=== PATIENT | male | born 1960 | race Caucasian/White ===

== ENCOUNTER 2016-10-19 07:06 | Emergency (ER) | payer BC ==
[~2016-10-19] VITALS: Ht 190.5 cm; Wt 149.1 kg
[~2016-10-19 07:06] MED LIST: ADVIL200 M3 PO; ALKA-SELTZER H1 EACH PO; AMLODIPINE BESY10 MG PO; ASPIR 8181 M1 PO; ASPIRIN325 MG PO; ATORVASTATIN CA80 MG PO; BYSTOLIC10 MG PO; CEFDINIR300 MG PO; DIOVAN HCT 31 TABLE1 PO; DIOVAN320 MG PO; ECOTRIN325 MG PO; EFFIENT10 MG PO; ENDOCET 5-3251 EACH PO; EPIPEN ADU0.3 MG/0.3 IM; GLUCOPHAGE500 MG PO; HYZAAR 100-21 TABLET PO; INDOCIN25 MG PO; LABETALOL HCL200 MG PO; LIPITOR80 MG PO; MEN'S MULTI-VI1 EACH PO; METFORMIN HCL500 MG PO; MOTRIN IB200 MG PO; MOTRIN800 MG PO; MUCINEX DM1 TABLET PO; NITROSTAT0.4 MG SL; NORCO 5/3251 TABLET PO; NORVASC10 MG PO; PERCOCET 5/31 TABLET PO; PLAVIX75 MG PO; PREDNISONE10 MG PO; PREDNISONE20 MG PO; SPIRONOLACTONE25 MG PO; TENORMIN25 MG PO; TYLENOL WITH C1 EACH PO; VALIUM5 MG PO; VENTOLIN HFA18 GM IH
[2016-10-19] MEDS ORDERED: BACTRIM,SEPT1 TABLET PO (08:23)
[2016-10-19 09:11] VITALS: BP 158/89
== END 2016-10-19 10:38 | disposition home or self-care (01) ==
LOC: EME 07:06
PROC: 0H9HXZZ Drainage of Right Upper Leg Skin, External Approach (ICD-10-PCS; principal; 2016-10-19)
DX: L02.415 Cutaneous abscess of right lower limb (principal); R51 Headache; I10 Essential (primary) hypertension; E78.5 Hyperlipidemia, unspecified; Z95.5 Presence of coronary angioplasty implant and graft; Z79.02 Long term (current) use of antithrombotics/antiplatelets; R73.09 Other abnormal glucose; Z79.84 Long term (current) use of oral hypoglycemic drugs; Z79.82 Long term (current) use of aspirin; Z87.891 Personal history of nicotine dependence
CPT/HCPCS: 99281; 99285

== ENCOUNTER 2016-10-21 07:19 | Inpatient (IN) | payer BC ==
[~2016-10-21] VITALS: Ht 190.5 cm; Wt 143.0 kg
[~2016-10-21 07:19] MED LIST changes: +BACTRIM,SEPT1 TABLET PO
[2016-10-21 08:56] LABS: HEMATOCRIT 43.3 % (38.0-50.0); MCH 26.8 PG (29.0-34.0); MCHC 32.6 G/DL (30.0-36.0); MCV 82.3 FL (86-99); MEAN PLAT.VOLUME 9.6 uM^3 (9.0-12.4); PLATELET COUNT 184 K/uL (156-360); RBC DIS.WIDTH-CV 14.7 % (11.8-14.6); RBC DIS.WIDTH-SD 43.7 % (39-53); RED BLOOD COUNT 5.26 M/uL (4.00-5.50); WHITE BLOOD COUNT 14.5 K/uL (4.1-10.2)
[2016-10-21 09:07] LABS: CHLORIDE 103 mEq/L (99-109); POTASSIUM 3.8 mEq/L (3.7-5.4)
[2016-10-21 09:08] LABS: SODIUM 137 mEq/L (136-147)
[2016-10-21 09:09] LABS: GLUCOSE 188 mg/dL (70-99)
[2016-10-21 09:11] LABS: ANION GAP 11 MEQ/L (2-14)
[2016-10-21 09:13] LABS: GFR ESTIMATE (CALCULATED) 51 mL/min/
[2016-10-21 09:14] LABS: UREA NITROGEN (BUN) 19 mg/dL (9-23)
[2016-10-21 09:40] LABS: ADD MIUA? YES; BILIRUBIN NEGATIVE; BLOOD SMALL; COLOR YELLOW ((YELLOW)); GLUCOSE (STRIP) 150; KETONES NEGATIVE; LEUKOCYTES NEGATIVE; NITRITE NEGATIVE; PROTEIN (STRIP) 100; SPECIFIC GRAVITY 1.016 (1.000-1.030); UROBILINOGEN 0.2 MG/DL (0.2-1.0)
[2016-10-21 09:49] LABS: BACTERIA NONE SEEN /HPF; EPITHELIAL CELLS RARE /HPF; HYALINE CASTS 0-5 /LPF; MUCUS TRACE /LPF; RED BLOOD CELLS 0-5 /HPF (0-5); UCUL ADDED? NO; WHITE BLOOD CELLS 0-5 /HPF (0-5)
[2016-10-21] MEDS ORDERED: TRICOR145 MG PO (11:36)
[2016-10-21] MEDS ORDERED: BACTRIM,SEPT1 TABLET PO (12:05)
[2016-10-21 13:04] VITALS: BP 128/78
[2016-10-21 15:28] VITALS: BP 125/76
[2016-10-21 19:13] VITALS: BP 171/78
[2016-10-21 23:49] VITALS: BP 143/70
[2016-10-22 04:31] VITALS: BP 135/76
[2016-10-22 05:38] LABS: HEMATOCRIT 36.8 % (38.0-50.0); MCH 28.4 PG (29.0-34.0); MCV 83.6 FL (86-99); MEAN PLAT.VOLUME 10.1 uM^3 (9.0-12.4); PLATELET COUNT 169 K/uL (156-360); RBC DIS.WIDTH-CV 14.9 % (11.8-14.6); RBC DIS.WIDTH-SD 45.5 % (39-53); WHITE BLOOD COUNT 10.1 K/uL (4.1-10.2)
[2016-10-22 05:57] LABS: ANION GAP 10 MEQ/L (2-14); CHLORIDE 106 MEQ/L (99-109); GFR ESTIMATE (CALCULATED) > 59 mL/min/; GLUCOSE 131 mg/dL (70-99); POTASSIUM 3.6 MEQ/L (3.7-5.4); SAMPLE HEMOLYSIS CHECK 0; SAMPLE ICTERIC CHECK 0; SAMPLE LIPEMIA CHECK 0; SODIUM 138 MEQ/L (136-147); UREA NITROGEN (BUN) 16 mg/dL (9-23)
[2016-10-22 07:07] LABS: Estimated Average Glucose 151 mg/dL (70-123); HEMOGLOBIN A1c (GLYCOHEMOGLOB) 6.9 % HGB (Below 5.7)
[2016-10-22 07:38] VITALS: BP 142/67
[2016-10-22 12:01] LABS: POINT-OF-CARE USER ID PUTDRM
[2016-10-22 15:17] VITALS: BP 156/87
[2016-10-22 16:30] LABS: POINT-OF-CARE USER ID PUTDRM
[2016-10-22 19:41] VITALS: BP 145/82
[2016-10-22 23:35] VITALS: BP 139/69
[2016-10-23 06:13] LABS: GFR ESTIMATE (CALCULATED) > 59 mL/min/; UREA NITROGEN (BUN) 19 mg/dL (9-23)
[2016-10-23 07:50] VITALS: BP 161/83
[2016-10-23 15:40] VITALS: BP 158/84
[2016-10-24 00:06] VITALS: BP 155/95
[2016-10-24 06:23] LABS: EOSINOPHIL (%) 5.1 % (0-5); EOSINOPHIL COUNT 0.3 K/uL (0-0.3); HEMATOCRIT 37.3 % (38.0-50.0); IMMATURE GRANULOCYTE (%) 2.3 % (0.0-0.7); IMMATURE GRANULOCYTE COUNT 0.1 K/uL; INSTRUMENT ABS NEUTROPHIL CT 4.3 K/uL; LYMPHOCYTE COUNT 0.9 K/uL (1.0-2.8); MCH 26.8 PG (29.0-34.0); MCHC 32.4 G/DL (30.0-36.0); MCV 82.7 FL (86-99); MEAN PLAT.VOLUME 9.5 uM^3 (9.0-12.4); MONOCYTE (%) 9.3 % (3-12); MONOCYTE COUNT 0.6 K/uL (0-0.8); NEUTROPHIL (%) 68.7 % (45-76); NEUTROPHIL COUNT 4.3 K/uL (1.8-6.4); PLATELET COUNT 206 K/uL (156-360); RBC DIS.WIDTH-CV 14.3 % (11.8-14.6); RBC DIS.WIDTH-SD 43.3 % (39-53); RED BLOOD COUNT 4.51 M/uL (4.00-5.50); WHITE BLOOD COUNT 6.2 K/uL (4.1-10.2)
[2016-10-24 06:52] LABS: ALKALINE PHOSPHATASE 57 IU/L (3-129); ANION GAP 8 MEQ/L (2-14); CHLORIDE 107 MEQ/L (99-109); GFR ESTIMATE (CALCULATED) > 59 mL/min/; GLUCOSE 128 mg/dL (70-99); SAMPLE HEMOLYSIS CHECK 0; SAMPLE ICTERIC CHECK 0; SAMPLE LIPEMIA CHECK 0; SODIUM 141 MEQ/L (136-147); TOTAL BILIRUBIN 0.5 MG/DL (0.0-1.0); UREA NITROGEN (BUN) 17 mg/dL (9-23)
[2016-10-24 07:00] LABS: POTASSIUM 4.5 MEQ/L (3.7-5.4)
[2016-10-24 08:15] VITALS: BP 169/79
[2016-10-24 16:15] VITALS: BP 168/93
[2016-10-24 23:32] VITALS: BP 168/78; BP 177/88
[2016-10-25 08:22] VITALS: BP 170/78
[2016-10-25] MEDS ORDERED: KEFLEX500 MG PO (12:33)
[2016-10-25] MEDS ORDERED: TRAMADOL HCL50 MG PO (12:34)
[2016-10-25 12:40] VITALS: BP 158/85
== END 2016-10-25 14:12 | disposition home or self-care (01) | DRG 872 ==
LOC: EME 07:19 → EDOF 10:35 → 2EAST 10:35 → ENRESERV 10:36 → 2EAST 12:52
PROVIDERS: Hospitalist; Physician Assistant Medical
DX: A41.9 Sepsis, unspecified organism (principal); N17.9 Acute kidney failure, unspecified; L03.115 Cellulitis of right lower limb; I10 Essential (primary) hypertension; I25.10 Atherosclerotic heart disease of native coronary artery without angina pectoris; E78.5 Hyperlipidemia, unspecified; E11.9 Type 2 diabetes mellitus without complications; E66.9 Obesity, unspecified; Z68.39 Body mass index [BMI] 39.0-39.9, adult; Z95.5 Presence of coronary angioplasty implant and graft; Q87.89 Other specified congenital malformation syndromes, not elsewhere classified; Z87.891 Personal history of nicotine dependence; Z98.1 Arthrodesis status; Z79.82 Long term (current) use of aspirin; Z79.84 Long term (current) use of oral hypoglycemic drugs; Z79.02 Long term (current) use of antithrombotics/antiplatelets
CPT/HCPCS: 73701; 80048; 80053; 81003; 82043; 82565; 82570; 82948; 83036; 83605; 84520; 85025; 85027; 87040; 87070; 87075; 87077; 87205; 99281; 99285; J0690; J1650; J1815; J3370; J7030